=== PATIENT | male | born 1955 | race Caucasian/White ===

== ENCOUNTER 2017-05-11 09:55 | Emergency (ER) | payer MEDICARE ==
[2017-05-11 10:09] VITALS: BP 123/82; PULSE 65; RESP 18; TEMP 97
--- NOTE | 2017-05-11 10:16 | ED ---
Extremity Problem HPI - General Chief complaint: Extremity Problem,Nontraumatic Stated complaint: left knee pain Time Seen by Provider: 05/11/17 10:10 Source: patient, RN notes reviewed Mode of arrival: wheelchair Limitations: no limitations - History of Present Illness Initial comments: 62-year-old male presents emergency Department chief complaint left knee pain. Patient states started hurting over the last 1-2 days. Patient denies any trauma. He states it only bothers him when he weightbears he feels pain just inferior to his patella. Denies any redness, swelling fever or chills. Patient states that no prior knee problems like this. Denies any clicking or popping no falls no laxity sensation to it. - Related Data Previous Rx's Medication Instructions Recorded Acetaminophen-Codeine 300-30mg 1 tab PO Q4H PRN #20 tablet 05/11/17 [Tylenol #3] Allergies Allergy/AdvReac Type Severity Reaction Status Date / Time No Known Allergies Allergy Verified 05/11/17 10:09 Review of Systems ROS Statement: Those systems with pertinent positive or pertinent negative responses have been documented in the HPI. ROS Other: All systems not noted in ROS Statement are negative. Past Medical History Past Medical History: Hypertension History of Any Multi-Drug Resistant Organisms: None Reported Past Surgical History: Hernia Repair Past Psychological History: No Psychological Hx Reported Smoking Status: Never smoker Past Alcohol Use History: Rare Past Drug Use History: None Reported General Exam Limitations: no limitations General appearance: alert, in no apparent distress Respiratory exam: Present: normal lung sounds bilaterally. Absent: respiratory distress, wheezes, rales, rhonchi, stridor Cardiovascular Exam: Present: regular rate, normal rhythm, normal heart sounds. Absent: systolic murmur, diastolic murmur, rubs, gallop, clicks Extremities exam: Present: other (Left knee there is mild swelling in the prepatellar region, patient has full range of motion passive no discomfort there is mild discomfort with flexion of the knee active, pupils equal bilaterally there is no calf tenderness there is no erythema no warmth or joint. ) Course Vital Signs 05/11/17 10:06 Temperature 97.0 F L Pulse Rate 65 Respiratory 18 Rate Blood Pressure 123/82 O2 Sat by Pulse 97 Oximetry Medical Decision Making - Medical Decision Making 62-year-old male presented for left knee pain. Patient has [id number]-hshwykny patella moral joint space loss. Patient is having evidence of inflammatory changes secondary to osteoarthritis patient may have had unknown injury where he twisted it. Patient be discharged follow-up with orthopedics return parameters were discussed Disposition Clinical Impression: Left knee pain, Osteoarthritis of left knee Disposition: HOME SELF-CARE Condition: Stable Instructions: Knee Pain (ED) Additional Instructions: Please return to the Emergency Department if symptoms worsen or any other concerns. Prescriptions: Acetaminophen-Codeine 300-30mg [Tylenol #3] 1 tab PO Q4H PRN #20 tablet PRN Reason: pain Referrals: Agustin Morgan Jr, DO [Primary Care Provider] - 1-2 days Time of Disposition: 10:37
--- NOTE | 2017-05-11 10:33 | XR ---
EXAMINATION TYPE: XR knee complete LT DATE OF EXAM: 05/11/2017 CLINICAL HISTORY: Pain and swelling. TECHNIQUE: Three views of the left knee are obtained. COMPARISON: None. FINDINGS: There is no acute fracture/dislocation evident in left knee. There is mild to moderate bethany nt space loss with mild spurring medial tibiofemoral compartment. Mild joint space loss patellofemor al compartment is seen. The overlying soft tissue appears unremarkable. IMPRESSION: There is no acute fracture or dislocation in the left knee.
== END 2017-05-11 10:53 | disposition home or self-care (01) ==
LOC: EC 09:55
DX: M17.12 Unilateral primary osteoarthritis, left knee (principal)
CPT/HCPCS: 99283

== ENCOUNTER 2018-11-20 11:34 | Emergency (ER) | payer MEDICARE ==
[2018-11-20 11:47] VITALS: TEMP 98.4
--- NOTE | 2018-11-20 13:51 | CT ---
EXAMINATION TYPE: CT brain farida kumar con DATE OF EXAM: 11/20/2018 COMPARISON: NONE HISTORY: Fall from porch. Abrasion to Rt side of face next to orbit. Head and neck pain. CT DLP: 1719.1 mGycm. Automated Exposure Control for Dose Reduction was Utilized. TECHNIQUE: CT scan of the head and cervical spine are performed without contrast. FINDINGS: There is no acute intracranial hemorrhage, mass effect, or midline shift identified. Pun ctate left basal ganglia calcifications are incidentally noted. Old lacunar injuries are seen of the right external capsule and inferior right basal ganglia as well as the left external capsule. Patchy areas of hypoattenuation are noted within the subcutaneous cortical and periventricular white matter. Mild soft tissue swelling is seen in the right periorbital soft tissues. Globes and extraocular musc les are symmetric. Mild exophthalmos is noted. Lenses are in place. No suspicious extra-axial fluid c ollection is seen. Mucosal retention cyst is present within the right maxillary sinus. Scant mucosal thickening is seen within the ethmoid sinuses. Remaining paranasal sinuses and mastoid air cells are well aerated. Cervical spine is visualized in its entirety from C1 through upper thoracic levels and demonstrates s atisfactory vertebral body heights. There is very minimal grade 1 anterolisthesis of C4 and C5. Multi level facet arthropathy and uncovertebral hypertrophy are seen creating moderate to severe degenerati ve change with periapical degrees of neural foraminal narrowing. Multilevel disc osteophyte complexes are also noted. Prevertebral soft tissue appears within normal limits. 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 The C1-C2 articulation is unremarkable. IMPRESSION: 1. There is no acute fracture or dislocation evident in the cervical spine. 2. No acute intracranial hemorrhage, mass effect, or midline shift is seen. 3. Old lacunar injuries of the external capsules and right inferior lentiform nucleus. 4. Mild right supraorbital subcutaneous soft tissue swelling. 5. Moderate to severe multilevel degenerative disc disease of the cervical spine. 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
--- NOTE | 2018-11-20 14:07 | XR ---
EXAMINATION TYPE: XR knee complete RT DATE OF EXAM: 11/20/2018 CLINICAL HISTORY: Right knee pain after a fall TECHNIQUE: Three views of the right knee are obtained. COMPARISON: None. FINDINGS: There is no acute fracture/dislocation evident in right knee. The tri-compartment joint s paces demonstrate mild tricompartmental osteophytes with tibial spine osteophyte laterally. Small sup rapatellar joint effusion and mild prepatellar soft tissue swelling are noted. The overlying soft ti ssue appears unremarkable. IMPRESSION: 1. No acute fracture or dislocation in the right knee. Line 2. Small suprapatellar joint effusion and mild prepatellar soft tissue swelling. 3. Mild tricompartmental arthropathy.
[2018-11-20] MEDS ORDERED: DIPH,PERTUS(ACELL)TETVAC-LF 0.5 ML VIAL IM ONE (14:46)
--- NOTE | 2018-11-20 15:06 | ED ---
General Adult HPI - General Chief complaint: Extremity Injury, Lower Stated complaint: RT KNEE SWELLING Time Seen by Provider: 11/20/18 11:57 Source: patient, RN notes reviewed, old records reviewed Mode of arrival: wheelchair Limitations: no limitations - History of Present Illness Initial comments: 63-year-old male patient with past medical history of benign essential tremor presents to ED after sustaining a fall yesterday. Patient was walking downstairs, on the last stair he misstep and fell forward, patient fell onto his right knee, also had a minor abrasion to his right roman catholic. Patient presents today for right knee pain. Patient denies any loss of consciousness during fall. Patient denies any changes in vision or neck pain. Patient ambulatory today. Patient primary complaint is swelling in his right knee and mild amount of pain with ambulation. Patient is able to without difficulty stay. Systemic: Pt denies fatigue, fever/chills, rash. Pt denies weakness, night sweats, weight loss. Neuro: Pt denies headache, visual disturbances, syncope or pre-syncope. HEENT: Pt denies ocular discharge or irritation, otalgia, rhinorrhea, pharyngitis or notable lymphadenopathy. Cardiopulmonary: Pt denies chest pain, SOB, heart palpitations, dyspnea on exertion. Abdominal/GI: Pt denies abdominal pain, n/v/d. : Pt denies dysuria, burning w/ urination, frequency/urgency. Denies new onset urinary or bowel incontinence. MSK: Pt denies myalgia, loss of strength or function in extremities. Neuro: Pt denies new onset weakness, paresthesias. - Related Data Home Medications Medication Instructions Recorded Confirmed Propranolol HCl [Inderal] 60 mg PO BID 05/11/17 11/20/18 Previous Rx's Medication Instructions Recorded Ibuprofen [Motrin] 600 mg PO Q6HR PRN #40 day 11/20/18 Allergies Allergy/AdvReac Type Severity Reaction Status Date / Time No Known Allergies Allergy Verified 11/20/18 14:03 Review of Systems ROS Statement: Those systems with pertinent positive or pertinent negative responses have been documented in the HPI. ROS Other: All systems not noted in ROS Statement are negative. Past Medical History Past Medical History: Hypertension History of Any Multi-Drug Resistant Organisms: None Reported Past Surgical History: Hernia Repair Past Psychological History: No Psychological Hx Reported Smoking Status: Smoker, current status unknown Past Alcohol Use History: Rare Past Drug Use History: None Reported General Exam - General Exam Comments Initial Comments: Constitutional: NAD, AOX3, Pt has pleasant affect. HEENT: NC/AT, trachea midline, neck supple, no lymphadenopathy. Posterior pharynx non erythematous, without exudates. External ears appear normal, without discharge. Tympanic membrane pale luu bilaterally, no bulging, no erythema. Mucous membranes moist. Eyes PERRLA, EOM intact. There is no scleral icterus. No pallor noted. Cardiopulmonary: RRR, no murmurs, rubs or gallops, no JVD noted. Lungs CTAB in anterior and posterior alicia. No peripheral edema. Abdominal exam: Abdomen soft and non-distended. Abdomen non-tender to palpation in all 4 quadrants. Bowel sounds active in LLQ. No hepatosplenomegaly. No ecchymosis Neuro: CN II-XII intact. No nuchal rigidity. No cervical spine tenderness. Full active range of motion of neck. MSK: Right knee mildly edematous, small abrasion noted. No erythema. Full active range of motion of right knee. Ambulatory without difficulty. Distal pulses intact and equal. Small abrasion noted at right roman catholic. No open wound. No facial crepitus. No posterior calf tenderness bilaterally, homans sign negative bilaterally. Posterior tibialis and radial pulse +2 bilaterally. Sensation intact in upper and lower extremities. Full active ROM in upper and lower extremities, 5/5 stregnth. Limitations: no limitations Course Vital Signs 11/20/18 11/20/18 11:42 15:37 Temperature 98.4 F Pulse Rate 71 77 Respiratory 20 18 Rate Blood Pressure 130/77 132/86 O2 Sat by Pulse 97 96 Oximetry Medical Decision Making - Medical Decision Making 63-year-old male patient with past medical history of benign essential tremor presents to ED after sustaining a fall yesterday. Patient was walking downstairs, on the last stair he misstep and fell forward, patient fell onto his right knee, also had a minor abrasion to his right roman catholic. Patient presents today for right knee pain. Patient denies any loss of consciousness during fall. Patient denies any changes in vision or neck pain. Patient ambulatory today. Patient vital signs stable, afebrile. Physical exam displayed: Right knee mildly edematous, small abrasion noted. No erythema. Full active range of motion of right knee. Ambulatory without difficulty. Distal pulses intact and equal. Small abrasion noted at right roman catholic. No open wound. No facial crepitus. Pain films of knee displayed no acute fracture or dislocation, small suprapatellar joint effusion and mild prepatellar soft tissue swelling. Mild tri compartmental arthropathy. CT of brain and cervical spine displayed no acute fracture dislocation evident cervical spine. No acute intracranial hemorrhage, mass effect or midline seen. Old lacunar injuries of the external capsule and right inferior lentiform nucleus. Mild right supraorbital subcuteneous soft tissue swelling. Moderate to severe multilevel degenerative disc disease. These findings were explained to patient at length. Patient verbalized understanding. Patient to follow up with primary care provider in 1-2 days. Patient's tetanus updated today. Patient given referral to orthopedic surgeon. Patient to contact orthopedic surgeon this symptoms continue. Patient to use ibuprofen as needed for pain and inflammation. Patient to return to ED if new signs symptoms develop or if condition worsens in anyway. Case discussed in depth with Dr. Schmidt. Disposition Clinical Impression: Fall Disposition: HOME SELF-CARE Condition: Stable Instructions (If sedation given, give patient instructions): Knee Sprain (ED), Fall Prevention for Older Adults (ED) Additional Instructions: Patient to adhere to previously discussed treatment plan and will take medication(s) as directed. Patient to follow up with PCP in 1-2 days. Patient to return to ED if symptoms do not improve. Prescriptions: Ibuprofen [Motrin] 600 mg PO Q6HR PRN #40 day PRN Reason: Pain Is patient prescribed a controlled substance at d/c from ED?: No Referrals: Agustin Morgan Jr, DO [Primary Care Provider] - 1-2 days Dat Torres MD [STAFF PHYSICIAN] - 1-2 days Time of Disposition: 17:31
[2018-11-20 15:37] VITALS: BP 132/86; PULSE 77; RESP 18
== END 2018-11-20 15:37 | disposition home or self-care (01) ==
LOC: EC 11:34
DX: S80.211A Abrasion, right knee, initial encounter (principal); M25.461 Effusion, right knee; M12.861 Other specific arthropathies, not elsewhere classified, right knee; M50.30 Other cervical disc degeneration, unspecified cervical region; M79.89 Other specified soft tissue disorders; I10 Essential (primary) hypertension; F17.200 Nicotine dependence, unspecified, uncomplicated; Z79.899 Other long term (current) drug therapy; Z23 Encounter for immunization; W10.9XXA Fall (on) (from) unspecified stairs and steps, initial encounter; Y93.01 Activity, walking, marching and hiking; Y92.89 Other specified places as the place of occurrence of the external cause
CPT/HCPCS: 70450; 72125; 90471; 90715; 99284

== ENCOUNTER → 2019-06-08 | Outpatient (CLI) | payer MEDICARE ==
[2019-06-08 10:23] LABS: Basophils # (A) 0.1 k/uL (0-0.2); Basophils % (A) 1 %; Eosinophils # (A) 0.2 k/uL (0-0.7); Eosinophils % (A) 3 %; HCT 50.9 % (39.0-53.0); HGB 16.6 gm/dL (13.0-17.5); Lymphocytes # (A) 2.3 k/uL (1.0-4.8); Lymphocytes % (A) 36 %; MCH 30.6 pg (25.0-35.0); MCHC 32.6 g/dL (31.0-37.0); MCV 93.8 fL (80.0-100.0); Mean Platelet Volume 7.2; Monocytes # (A) 0.4 k/uL (0-1.0); Monocytes % (A) 7 %; Neutrophils # (A) 3.3 k/uL (1.3-7.7); Neutrophils % (A) 51 %; Platelet Count 258 k/uL (150-450); RBC 5.43 m/uL (4.30-5.90); RDW 14.4 % (11.5-15.5); WBC 6.5 k/uL (3.8-10.6)
[2019-06-08 11:45] LABS: Erythrocyte Sedimentation Rate 2 mm/hr (0-15)
[2019-06-08 16:06] LABS: Vitamin D 25 Hydroxy 13.7 ng/mL (30.0-100.0)
[2019-06-08 16:08] LABS: Calcium 9.9 mg/dL (8.7-10.3); Uric Acid 4.9 mg/dL (3.7-8.7)
== END | disposition home or self-care (01) ==
LOC: LABWHC1 09:49
PROVIDERS: ATTEND Dermatology
DX: L74.519 Primary focal hyperhidrosis, unspecified (principal)
CPT/HCPCS: 36415; 82306; 82310; 82533; 82652; 83970; 84146; 84439; 84443; 84481; 84550; 85025; 85652; 86038

== ENCOUNTER → 2022-02-12 | Outpatient (CLI) | payer OTHER ==
[2022-02-12 09:40] LABS: Partial Thromboplastin Time 26.4 sec (22.0-30.0); Prothrombin Time 10.7 sec (9.0-12.0)
[2022-02-12 14:29] LABS: Appearance,Urine Clear (Clear); Bilirubin,Urine Negative (Negative); Blood,Urine Negative (Negative); Color,Urine Yellow (Yellow); Ketones,Urine Negative (Negative); Nitrite,Urine Negative (Negative); Specific Gravity,Urine 1.015 (1.001-1.030); Urobilinogen,Urine 0.2 (0.2,1.0)
[2022-02-12 14:39] LABS: HCT 50.1 % (39.6-50.0); HGB 16.2 g/dL (13.0-17.0); MCH 30.8 pg (27.0-32.0); MCHC 32.3 g/dL (32.0-37.0); MCV 95.2 fL (80.0-97.0); Mean Platelet Volume 9.9 fL (9.5-12.2); NRBC Per 100 WBC 0 /100 WBCS (0.0-0.0); Platelet Count 251 X 10*3/uL (140-440); RBC 5.26 X 10*6/uL (4.40-5.60); RDW 12.7 % (11.5-14.5); WBC 7.17 X 10*3/uL (4.50-10.00)
[2022-02-12 15:14] LABS: African American GFR (CKD) 102.1 (60.0-200.0); Albumin 4.4 g/dL (3.8-4.9); Albumin/Globulin Ratio 1.83 (1.60-3.17); Anion Gap 8.4 mmol/L (10.00-18.00); BUN/Creat Ratio 16.22 Ratio (12.00-20.00); Blood Urea Nitrogen 14.6 mg/dL (9.0-27.0); Calcium 10.3 mg/dL (8.7-10.3); Carbon Dioxide 25.6 mmol/L (20.0-27.5); Globulin 2.4 g/dL (1.6-3.3); Non-African American GFR(CKD) 88.1 (60.0-200.0); Potassium 4.6 mmol/L (3.5-5.5); Total Bilirubin 0.7 mg/dL (0.30-1.20); Total Protein 6.8 g/dL (6.2-8.2)
== END | disposition home or self-care (01) ==
LOC: LABPAT 08:14
PROVIDERS: ATTEND Orthopaedic Surgery Sports Medicine
DX: Z01.818 Encounter for other preprocedural examination (principal); Z01.812 Encounter for preprocedural laboratory examination
CPT/HCPCS: 36415; 80053; 81003; 85027; 85610; 85730; 87070

== ENCOUNTER 2022-03-23 03:02 | Emergency (ER) | payer MEDICARE, OTHER ==
[2022-03-23 03:13] VITALS: TEMP 98.4
[2022-03-23] MEDS ORDERED: IPRATROPIUM-ALBUTEROL 3 ML NEB INHALATION STA (03:31)
[2022-03-23] MEDS ORDERED: AMOXIC-POT CLAV 875-125MG 1 EACH TAB PO STA (03:31)
[2022-03-23] MEDS ORDERED: ACETAMINOPHEN TAB 500 MG TAB PO STA (03:31)
[2022-03-23] MEDS ORDERED: LORATADINE-PSEUDOEPH 5-120 MG 1 EACH TAB.ER.12H PO STA (03:31)
[2022-03-23] MEDS ORDERED: IBUPROFEN 800 MG TAB PO STA (03:31)
--- NOTE | 2022-03-23 03:33 | ED ---
URI HPI - General Chief Complaint: Upper Respiratory Infection Stated Complaint: Cough Time Seen by Provider: 03/23/22 03:17 Source: patient, RN notes reviewed, old records reviewed Mode of arrival: wheelchair Limitations: no limitations - History of Present Illness Initial Comments: This is a 66-year-old male the ER today. Patient presents today for evaluation regards to cough and runny nose cough congestion sore throat. Patient is has symptoms for a few days now. No travel show sick contacts no other complaints. No nausea no vomiting. Medical history of high blood pressure no other significant issues. Noted family or similar symptoms. No known travel history or sick contacts. MD Complaint: cough, sore throat, nasal congestion, sinus pain -: days(s) Severity: moderate Severity scale (1-10): 4 Consistency: constant Improves With: nothing Worsens With: nothing Context: sick contacts Associated Symptoms: myalgias, nasal congestion, sore throat, cough Treatments Prior to Arrival: none - Related Data Home Medications Medication Instructions Recorded Confirmed Atorvastatin [Lipitor] 40 mg PO HS 02/25/22 02/25/22 Metoprolol Tartrate [Lopressor] 50 mg PO BID 02/25/22 02/25/22 Allergies Allergy/AdvReac Type Severity Reaction Status Date / Time No Known Allergies Allergy Verified 03/23/22 03:13 Review of Systems ROS Statement: Those systems with pertinent positive or pertinent negative responses have been documented in the HPI. ROS Other: All systems not noted in ROS Statement are negative. Past Medical History Past Medical History: Hypertension History of Any Multi-Drug Resistant Organisms: None Reported Past Surgical History: Hernia Repair Additional Past Surgical History / Comment(s): going for knee surgery 03/2022 Past Psychological History: No Psychological Hx Reported Smoking Status: Never smoker Past Alcohol Use History: Rare Past Drug Use History: None Reported General Exam General appearance: alert, in no apparent distress Head exam: Present: atraumatic, normocephalic, normal inspection Eye exam: Present: normal appearance, PERRL, EOMI. Absent: scleral icterus, conjunctival injection, periorbital swelling ENT exam: Present: normal exam, mucous membranes moist Neck exam: Present: normal inspection. Absent: tenderness, meningismus, lymphadenopathy Respiratory exam: Present: normal lung sounds bilaterally. Absent: respiratory distress, wheezes, rales, rhonchi, stridor Cardiovascular Exam: Present: regular rate, normal rhythm, normal heart sounds. Absent: systolic murmur, diastolic murmur, rubs, gallop, clicks GI/Abdominal exam: Present: soft, normal bowel sounds. Absent: distended, tenderness, guarding, rebound, rigid Extremities exam: Present: normal inspection, full ROM, normal capillary refill. Absent: tenderness, pedal edema, joint swelling, calf tenderness Back exam: Present: normal inspection Neurological exam: Present: alert, oriented X3, CN II-XII intact Psychiatric exam: Present: normal affect, normal mood Skin exam: Present: warm, dry, intact, normal color. Absent: rash Course Vital Signs 03/23/22 03/23/22 03/23/22 03:09 03:52 04:04 Temperature 98.4 F Pulse Rate 99 96 Respiratory 19 22 Rate Blood Pressure 151/90 O2 Sat by Pulse 93 L Oximetry 03/23/22 03/23/22 04:13 04:17 Temperature Pulse Rate 101 H 96 Respiratory 18 Rate Blood Pressure 125/76 O2 Sat by Pulse 92 L Oximetry - Reevaluation(s) Reevaluation #1: 03/23/22 03:55 Medical records reviewed Reevaluation #2: 03/23/22 04:34 Patient symptoms are improved here in the ER Reevaluation #3: 03/23/22 04:34 Patient is informed of results and questions have been answered Medical Decision Making - Medical Decision Making 66 male to the emergency department for evaluation regarding sinus pain significant cough and for for infection sinusitis severe. Patient replacement antibiotics, patient's in no acute distress and can be discharged home - Lab Data Lab Results 03/23/22 Range/Units 03:45 Influenza Type A RNA Not Detected (Not Detectd) Influenza Type B (PCR) Not Detected (Not Detectd) - Radiology Data Radiology results: report reviewed (Chest x-rays negative for acute disease), image reviewed Disposition Clinical Impression: Acute upper respiratory infection, Bronchitis, Sinusitis, Pharyngitis Disposition: HOME SELF-CARE Condition: Good Instructions (If sedation given, give patient instructions): Upper Respiratory Infection (ED) Is patient prescribed a controlled substance at d/c from ED?: No Referrals: Tylor Polanco DO [Primary Care Provider] - 1-2 days
--- NOTE | 2022-03-23 04:00 | XR ---
EXAMINATION TYPE: XR chest 1V DATE OF EXAM: 03/23/2022 COMPARISON: NONE HISTORY: Cough TECHNIQUE: Single view FINDINGS: There is no heart failure nor confluent pneumonic infiltrate. Costophrenic angles are clear . Thoracic aorta is atheromatous. IMPRESSION: No active cardiopulmonary disease. Normal heart.
[2022-03-23 04:25] VITALS: BP 125/76; RESP 18
[2022-03-23 04:27] VITALS: PULSE 96
== END 2022-03-23 04:45 | disposition home or self-care (01) ==
LOC: EC 03:02
DX: J32.9 Chronic sinusitis, unspecified (principal); J40 Bronchitis, not specified as acute or chronic; J02.9 Acute pharyngitis, unspecified; I10 Essential (primary) hypertension; Z79.899 Other long term (current) drug therapy
CPT/HCPCS: 71045; 87502; 94640; 99283

== ENCOUNTER → 2022-06-23 | Outpatient (CLI) | payer MEDICARE ==
[2022-06-23 19:01] LABS: Partial Thromboplastin Time 26.7 sec (22.0-30.0); Prothrombin Time 10.9 sec (9.0-12.0)
[2022-06-23 22:30] LABS: HCT 50.8 % (39.6-50.0); HGB 16.6 g/dL (13.0-17.0); MCHC 32.7 g/dL (32.0-37.0); Mean Platelet Volume 10.4 fL (9.5-12.2); NRBC Per 100 WBC 0 /100 WBCS (0.0-0.0); Platelet Count 261 X 10*3/uL (140-440); RBC 5.35 X 10*6/uL (4.40-5.60); RDW 13.2 % (11.5-14.5); WBC 8.11 X 10*3/uL (4.50-10.00)
[2022-06-23 22:57] LABS: African American GFR (CKD) 99.6 (60.0-200.0); Albumin 4.3 g/dL (3.8-4.9); Albumin/Globulin Ratio 1.58 (1.60-3.17); Anion Gap 11.8 mmol/L (10.00-18.00); BUN/Creat Ratio 14.9 Ratio (12.00-20.00); Blood Urea Nitrogen 13.6 mg/dL (9.0-27.0); Calcium 10.2 mg/dL (8.7-10.3); Carbon Dioxide 23.5 mmol/L (20.0-27.5); Globulin 2.7 g/dL (1.6-3.3); Potassium 4.5 mmol/L (3.5-5.5); Total Bilirubin 0.6 mg/dL (0.30-1.20)
[2022-06-23 23:38] LABS: Appearance,Urine Clear (Clear); Bilirubin,Urine Negative (Negative); Blood,Urine Negative (Negative); Color,Urine Yellow (Yellow); Ketones,Urine Negative (Negative); Nitrite,Urine Negative (Negative); Specific Gravity,Urine 1.019 (1.001-1.030); Urobilinogen,Urine 0.2 (0.2,1.0)
[2022-06-24 00:22] LABS: Bacteria,Urine None Seen /HPF (None Seen); Calcium Oxalate Crystals,Urine Present /LPF (None Seen)
== END | disposition home or self-care (01) ==
LOC: LABPAT 15:19
PROVIDERS: ATTEND Orthopaedic Surgery Sports Medicine
DX: Z01.812 Encounter for preprocedural laboratory examination (principal); Z01.818 Encounter for other preprocedural examination; M17.12 Unilateral primary osteoarthritis, left knee
CPT/HCPCS: 36415; 80053; 81001; 85027; 85610; 85730; 87070

== ENCOUNTER 2022-07-03 05:33 | Day surgery (SDC) | payer MEDICARE ==
[~2022-07-03 05:33] MED LIST: ACETAMINOPHEN TAB 500 MG TAB PO PRN; GABAPENTIN 300 MG CAP PO PRN; MELOXICAM 7.5 MG TAB PO PRN; ONDANSETRON 4 MG/2 ML VIAL IVP PRN; TRANEXAMIC ACID IN NACL,ISO-OS 1,000 MG in SALINE 1 100ML.BAG IVPB PRN; VANCOMYCIN 1,750 MG in SODIUM CHLORIDE 0.9% 500 ML 500 ML IVPB PRN
[2022-07-03] MEDS ORDERED: DEXAMETHASONE SOD PHOSPHATE 4 MG/ML 1 ML VIAL IV ONE (05:45)
[2022-07-03] MEDS ORDERED: HYDROmorphone 0.5 MG/0.5 ML SYRINGE IVP PRN ×4 (05:45→09:25)
[2022-07-03] MEDS ORDERED: ONDANSETRON 4 MG/2 ML VIAL IVP ONE (05:45)
[2022-07-03] MEDS: LACTATED RINGERS 1,000 ML IV SCH ×3 (06:24→22:27)
[2022-07-03] MEDS ORDERED: MIDAZOLAM 2 MG/2 ML VIAL IVP ONE (06:44)
[2022-07-03] MEDS ORDERED: fentaNYL (PF) 50 MCG/ML 2 ML AMP IVP ONE (06:44)
[2022-07-03] MEDS ORDERED: SODIUM CHLORIDE 0.9% (PF) 10 ML VIAL ONE (07:01)
[2022-07-03] MEDS ORDERED: ROPIVACAINE 5 MG/ML 30 ML VIAL ONE (07:01)
[2022-07-03] MEDS ORDERED: PROPOFOL 10 MG/ML 20 ML VIAL IV ONE (07:01)
[2022-07-03] MEDS ORDERED: SUCCINYLCHOLINE CHLORIDE 200 MG/10 ML VIAL IV ONE (07:01)
[2022-07-03] MEDS ORDERED: TRANEXAMIC ACID IN NACL,ISO-OS 1,000 MG/100 ML BAG ONE (07:01)
[2022-07-03] MEDS ORDERED: fentaNYL (PF) 50 MCG/ML 2 ML AMP ONE (07:01)
[2022-07-03] MEDS ORDERED: HYDROmorphone (PF) 1 MG/ML ONE (07:01)
[2022-07-03] MEDS ORDERED: PHENYLEPHRINE-0.9% NACL SYG 1,000 MCG/10 ML SYRINGE ONE (07:01)
[2022-07-03] MEDS ORDERED: LIDOCAINE 2% INJ 20 MG/ML (2 ML VIAL) ONE (07:01)
[2022-07-03] MEDS ORDERED: ceFAZolin 3,000 MG in SODIUM CHLORIDE 0.9% IRRIGATIO 3,000 ML IRRIGATION ONE (07:46)
[2022-07-03] MEDS ORDERED: LACTATED RINGERS 1,000 ML IV ONE (09:07)
[2022-07-03] MEDS ORDERED: TEMAZEPAM 15 MG CAP PO PRN (09:25)
[2022-07-03] MEDS ORDERED: diazePAM 5 MG TAB PO PRN (09:25)
[2022-07-03] MEDS ORDERED: MAGNESIUM HYDROXIDE 2,400 MG/10 ML CUP PO PRN (09:25)
[2022-07-03] MEDS ORDERED: traMADol 50 MG TAB PO PRN (09:25)
[2022-07-03] MEDS ORDERED: bisacodyL 10 MG SUPP RECTAL PRN (09:25)
[2022-07-03] MEDS ORDERED: NALOXONE 0.4 MG/ML 1 ML VIAL IV PRN (09:25)
[2022-07-03] MEDS ORDERED: NA PHOS,M-B/NA PHOS,DI-BA 133 ML ENEMA RECTAL PRN (09:25)
[2022-07-03] MEDS ORDERED: ONDANSETRON 4 MG/2 ML VIAL IVP PRN (09:25)
[2022-07-03] MEDS ORDERED: HYDROcodone/APAP 7.5-325MG 1 EACH TAB PO PRN ×2 (09:29)
[2022-07-03] MEDS ORDERED: ROPIVACAINE 0.2%-NS ON-Q PUMP 2 MG/ML EACH MISCELLANE ONE (09:41)
--- NOTE | 2022-07-03 09:54 | P.ANPRN ---
Procedure Note - Anesthesia - Nerve Block Performed Left Adductor Canal Infusion Time Out Performed: Yes (0643) Date of Procedure: 07/03/22 Procedure Start Time: 06:44 Procedure Stop Time: 06:49 Location of Patient: PreOp Indication: Acute Post-Operative Pain, Requested by Surgeon Specifically requested for management of pain by DrTiarra: Brigido Dinero Sedation Type: Sedate with meaningful contact maintained Preparation: Sterile Prep, Sterile Dressing Position: Supine Catheter Depth at Skin (cm): 8 Catheter: Indwelling Needle Types: Pajunk Needle Gauge: 18 Ultrasound used to visualize needle placement: Yes Ultrasound used to observe medication spread: Yes Injectate: 0.5% Ropivacaine (see comment for volume) (15cc +5cc nacl pf) Blood Aspirated: No Pain Paresthesia on Injection Noted: No Resistance on Injection: Normal Image Stored and Saved: Yes Events: Uneventful and Well Tolerated
--- NOTE | 2022-07-03 09:55 | P.ANPRN ---
Procedure Note - Anesthesia - Nerve Block Performed Left iPack Single Time Out Performed: Yes (0643) Date of Procedure: 07/03/22 Procedure Start Time: 06:50 Procedure Stop Time: 06:52 Location of Patient: PreOp Indication: Acute Post-Operative Pain, Requested by Surgeon Specifically requested for management of pain by DrTiarra: Brigido Dinero Sedation Type: Sedate with meaningful contact maintained Preparation: Sterile Prep Position: Supine Catheter: None Needle Types: Pajunk Needle Gauge: 21 Ultrasound used to visualize needle placement: Yes Ultrasound used to observe medication spread: Yes Injectate: 0.5% Ropivacaine (see comment for volume) (15cc + 5cc nacl pf) Blood Aspirated: No Pain Paresthesia on Injection Noted: No Resistance on Injection: Normal Image Stored and Saved: Yes Events: Uneventful and Well Tolerated
--- NOTE | 2022-07-03 10:10 | OP ---
OPERATIVE REPORT PREOPERATIVE DIAGNOSIS: Left knee osteoarthrosis. POSTOPERATIVE DIAGNOSIS: Left knee osteoarthrosis. PROCEDURE PERFORMED: Left total knee arthroplasty. ANESTHESIA: General endotracheal. ESTIMATED BLOOD LOSS: 100 mL. TOURNIQUET TIME: 57 minutes at 250 mmHg. COMPLICATIONS: None apparent. DRAINS: None. DISPOSITION: Postanesthesia care unit. INDICATIONS FOR PROCEDURE: Ren is a very pleasant 67-year-old male with longstanding history of left knee pain. History and physical examination are consistent with advanced left knee osteoarthrosis. He has been through significant nonoperative management up to this point. Further treatment options were discussed. He has decided to go forward with the left total knee arthroplasty. Risks of procedure were discussed with him in detail. These risks include, but are not limited to risk of infection, nerve damage, bleeding, pain, and a small risk of deep vein thrombosis which could lead to fatal pulmonary embolism. There is also risk of loosening of the implant which could require revision operation. The patient understands these risks. All of his questions were answered to his satisfaction. An appropriate informed consent was obtained. DESCRIPTION OF PROCEDURE: The patient was identified in the preoperative holding area. Surgical site was marked by both the patient and myself. He was given 2 g of Ancef IV for prophylactic purposes. He was then transferred to the operative suite. He was placed supine on the operating room table. General anesthetic was then administered and dosed per the Anesthesia Department without apparent complication. An examination under anesthesia was then performed. The patient was 5 to 7 degrees shy of full extension. He had 100 degrees of flexion. Medial collateral ligament, lateral collateral ligament, and posterior cruciate ligaments were stable. Tourniquet was then placed high on the left upper thigh and well-padded in preparation for surgery. The patient's left lower extremity was then prepped and draped in usual sterile fashion. Standard surgical pause was undertaken to ensure that we were operating the correct site and that appropriate preoperative antibiotics had been given. All staff in the room were in agreement, and we proceeded. The outlines of the patella were marked with a surgical pen. A planned 12 cm vertical incision centered over the patella was marked with a surgical pen. The leg was then exsanguinated with an Esmarch dressing. The knee was then flexed, and the tourniquet was inflated to 250 mmHg. The total tourniquet time for the procedure was 57 minutes. Incision was then made with a 10-blade scalpel. Dissection was carried down sharply overlying the fascia. Great care was taken to minimize the skin flaps. The knee was then exposed using a standard medial parapatellar approach. A small cuff of quadriceps tendon was then left for suturing. He was in a bit of varus preoperatively. A standard medial release was then made. Superficial medial collateral ligament was dissected off the bone around to the posterior aspect of the proximal tibia. The medial meniscus was then excised as well. The lateral meniscus was also released anteriorly. The leg was then externally rotated. The patella was everted. The knee was flexed. The retractors were then placed to protect the collateral ligaments. I then proceeded to remove the infrapatellar fat pad. This was excised sharply tangentially with fibers of the patellar tendon. I then proceeded to remove the peripheral osteophytes. This was done with a rongeur. I then proceeded with the distal femoral resection. He did have a small flexion contracture. A planned 11 mm resection was then done. The femoral canal was then entered in the midline of the femur approximately 10 mm anterior to the origin of the posterior cruciate ligament. The vladimir was then advanced down to the center of the femur and placed intramedullary. Based on the preoperative radiographs, the angle between the anatomic and mechanical axis of the femur was approximately 4 to 5 degrees. The valgus angle of the distal femoral cutting guide was then set at 4 degrees for the left knee. The distal femoral cutting guide was then advanced over the intramedullary vladimir. This was seated firmly against the femur. I then as mentioned planned to take 11 mm off the distal femur. The cutting block was then secured onto the femur with pins. The jig was then removed. The distal femoral cuts were made through the slot of the block. The pins were then removed. The distal femoral cutting block was removed. The accuracy of the distal femoral cuts was checked with 2 flat bars. I then proceeded with femoral sizing. Posterior referencing sizing guide was held firmly against the resected distal surface of the femur. The posterior condyles were resting on the posterior plane of the guide. The sizing stylus was then placed onto the anterior femur. The size was measured as a size 8. I then assessed for femoral rotation. The plan was for 3 degrees of external rotation. Three degrees of external rotation was placed onto the jig. These holes were then marked. I then confirmed the rotation by 3 separate methods. This was done using epicondylar axis as well as Gloster's line and posterior referencing. It was deemed that the external rotation was proper. I then went forward and placed the femoral cutting block. This was placed over the previously-placed pin holes. The Aric wing was then placed onto the anterior slots to ensure that we would not notch the anterior femur with the anterior femoral cut. I then proceeded with the anterior femoral cut. This was flush with the anterior cortex of the femur. The posterior cuts were then made followed by the anterior chamfer cut and then the posterior chamfer cut. The cutting block was then removed. Throughout the resection, the collateral ligaments were protected with retractors. I then placed a trial size 8 femur. It fit very nice medial and lateral and fit flush with the distal end of the femur. The drill holes were then made. I then proceeded with the tibial cut. I planned for a cruciate-retaining knee. The guide was placed and set for varus and valgus and for slope. The height was set for approximately 2 mm resection from the medial tibial plateau, which was the lower side. I was happy with the alignment and the amount of resection. The cutting block was then pinned to the proximal tibia. The alignment vladimir was removed, and the proximal tibia was resected with a reciprocating saw. Again, this was done with retractors protecting the collateral ligaments as well as the posterior cruciate ligament. I then proceeded to evaluate the flexion and extension gaps. A 10 mm block was then placed. The flexion and extension gaps were equal. I then proceeded with resection of the posterior osteophytes. He had very minimal posterior osteophytes. This was done using a curved osteotome. This resected the posterior osteophytes, and posterior capsular stripping was done off the posterior aspect of the femur at this time. The osteophytes were then removed. I then proceeded with resection of the patella. The thickness of the patella was measured using the caliper. The thickness was 22 mm. The thickness of the anticipated patellar dome was taken into account. Resection was then performed and confirmed to be equal in 4 quadrants using a caliper. Approximately 14 mm of bone remained after resection. A 29 x 8 standard patellar trial was then placed. The holes were drilled, and the trial was then placed. I then proceeded with sizing the tibial plate. A size D tibial plate fit very nicely. I placed the trial femur, the tibial tray, and the patellar button. A 10 mm trial tibial insert was also placed. The components fit very nicely. He had full extension and flexion. The extension and flexion gaps were equal and stable to both varus and valgus stress. The patella tracked appropriately. The tibial tray rotation was then marked with a Bovie. This was externally rotated properly. I then proceeded with tibial preparation. I first drilled the femoral holes and removed the femoral component. The tibial tray was then set for proper external rotation as well as medial and lateral placement onto the tibia. It was then pinned into place. I then proceeded with punching the keel. I then decided to proceed with cementing of all of our components. The knee was thoroughly irrigated with sterile saline solution via pulsed lavage. The lateral genicular artery was identified and cauterized. All blood was removed from the bone of the tibia, femur, and patella with pulsed lavage. I then proceeded with cementing. Two packs of antibiotic bone cement was prepared on the back table by surgical assist. I then proceeded with cementing of the tibia first. The cement was impacted into the keel as well as deeply seated into the bone. A second coat of cement was then placed. The tibia was then impacted into place. Excess cement was removed with Killingworth's and Joker's. I then proceeded with cementing of the femoral component. The femoral component was also cemented using standard technique. Excess cement was removed. A 10 mm trial insert was then placed into the knee. It was brought into full extension with a constant axial load placed until the cement had hardened. The patellar component was then cemented. This was held firmly with a compressive device until the cement had dried. When the cement had dried, the knee was taken out of extension. All excess cement was removed from around the prosthesis. I then trialed the knee with a 10 mm insert. The flexion and extension gaps were appropriate. The knee was stable. It came into full extension. I decided to go forward with a 10 mm Medial Congruent cross-linked cruciate- retaining tibial insert. Polyethylene was then placed onto the tibial tray and locked into place. The knee was then reduced. The knee was again further irrigated with sterile saline with antibiotic added. The tourniquet was then deflated. Total tourniquet time for the procedure was 57 minutes at 250 mmHg. Final components were Carlene Persona size 8 cruciate-retaining femoral component, a size D tibial tray, a 10 mm Medial Congruent cruciate-retaining polyethylene insert, and a 29 x 8 mm patella. I then proceeded with closure. Again, the knee was thoroughly irrigated. The quadriceps tendon and the medial retinaculum were reapproximated using #2 Ethibond suture. The extensor mechanism was then closed with a running #2 Quill suture. Subcutaneous tissue was closed with 2-0 Vicryl interrupted suture. The skin was closed with a running 3-0 Quill suture. Dermabond was applied to the incision. Sterile compressive dressing was then applied. All sponge and needle counts were deemed correct prior to closure. The patient tolerated the procedure without apparent complication. He was transferred to recovery room in stable condition. MMODL / IJN: [id number] /
--- NOTE | 2022-07-03 15:14 | XR ---
EXAMINATION TYPE: XR knee limited LT DATE OF EXAM: 07/03/2022 COMPARISON: NONE HISTORY: 67-year-old male evaluation for postoperative abnormality in alignment TECHNIQUE: 2 views FINDINGS: Images show placement of left total knee arthroplasty. Distal femoral and proximal tibial components of the prosthesis are well seated without periprosthetic fracture. Alignment grossly anatomic. Anteri or soft tissue swelling with scattered soft tissue air and small foci of intra-articular air related to recent operation. IMPRESSION: Uncomplicated postoperative appearance left total knee arthroplasty.
[2022-07-03] MEDS: ceFAZolin 3 GM in SODIUM CHLORIDE 0.9% 100 ML IVPB SCH (16:10)
[2022-07-03] MEDS ORDERED: SENNOSIDES-DOCUSATE SODIUM 1 EACH TAB PO SCH (21:00)
[2022-07-03] MEDS: ASPIRIN 81 MG PO SCH (21:17)
[2022-07-04] MEDS: ceFAZolin 3 GM in SODIUM CHLORIDE 0.9% 100 ML IVPB SCH (01:20)
[2022-07-04 03:17] VITALS: PULSE 88; RESP 19
[2022-07-04] MEDS: LACTATED RINGERS 1,000 ML IV SCH (05:10)
--- NOTE | 2022-07-04 07:41 | P.PN ---
Progress Note - Text Progress Note Date: 07/04/22 (6018) Anesthesiology Postop day 1 status post total knee arthroplasty with adductor canal catheter. Patient doing well. VAS 3-4 out of 10. Gross strength intact in lower extremity. Afebrile. Denies alterations in sensorium. Catheter site intact. Heart regular rate Lungs nonlabored Abdomen nondistended Assessment: Postop day 1 status post total knee arthroplasty with adductor canal catheter Plan: All questions answered. Maintain catheter 2 more days with patient removal at home. Instructions were given at discharge.
[2022-07-04] MEDS: ASPIRIN 81 MG PO SCH (07:56)
[2022-07-04 09:04] VITALS: BP 138/64; TEMP 97.7
[2022-07-04 10:49] LABS: HCT 43.1 % (39.6-50.0); HGB 13.7 g/dL (13.0-17.0); MCH 30.5 pg (27.0-32.0); MCHC 31.8 g/dL (32.0-37.0); Mean Platelet Volume 9.8 fL (9.5-12.2); NRBC Per 100 WBC 0 /100 WBCS (0.0-0.0); Platelet Count 211 X 10*3/uL (140-440); RBC 4.49 X 10*6/uL (4.40-5.60); RDW 13.2 % (11.5-14.5); WBC 9.35 X 10*3/uL (4.50-10.00)
--- NOTE | 2022-07-04 10:56 | P.DS ---
Providers Expected date of discharge: 07/04/22 Attending physician: Brigido Dinero Consults: 07/03/22 09:25 Consult Physician Routine Consulting Provider: Tylor Polanco Consult Reason/Comments: post op medical management Do you want consulting provider notified?: Yes Primary care physician: Tylor Polanco - Discharge Diagnosis(es) (1) Status post total left knee replacement Patient was admitted to the OR on 07/02/22 to undergo a left total knee arthroplasty. He had failed conservative measures as an outpatient and desired to proceed with elective surgery after given informed consent. He underwent the above procedure which he tolerated well without complication. Postoperative hospital course has remained without complication. On day of discharge he is afebrile, vital signs stable, labs within acceptable ranges, tolerating by mouth meds and diet, voiding without difficulty, positive flatus, denies abdominal pain or calf pain, pain is controlled on oral pain medication and has no new complaints. Wound is benign, neurovascular status is intact, calf is soft and nontender, abdomen soft and nontender. Review of systems is negative for numbness, tingling, fever, chills, chest pain, shortness of breath, nausea, vomiting, dizziness, headaches, slurred speech or other. Current Visit: Yes Status: Acute Priority: Medium Procedures: Left TKA Patient Condition at Discharge: Good Plan - Discharge Summary Discharge Rx Participant: No New Discharge Prescriptions: New Aspirin [Adult Low Dose Aspirin EC] 81 mg PO BID #60 tab Docusate [Colace] 100 mg PO BID #60 capsule HYDROcodone/APAP 7.5-325MG [[place] 7.5-325] 1 - 2 each PO Q6HR PRN #42 tab PRN Reason: Pain No Action Metoprolol Tartrate [Lopressor] 50 mg PO BID Atorvastatin [Lipitor] 40 mg PO HS Oxybutynin Chloride [Ditropan XL] 10 mg PO HS Discharge Medication List Atorvastatin [Lipitor] 40 mg PO HS 02/25/22 [History] Metoprolol Tartrate [Lopressor] 50 mg PO BID 02/25/22 [History] Oxybutynin Chloride [Ditropan XL] 10 mg PO HS 06/30/22 [History] Aspirin [Adult Low Dose Aspirin EC] 81 mg PO BID #60 tab 07/04/22 [Rx] Docusate [Colace] 100 mg PO BID #60 capsule 07/04/22 [Rx] HYDROcodone/APAP 7.5-325MG [[place] 7.5-325] 1 - 2 each PO Q6HR PRN #42 tab 07/04/22 [Rx] Follow up Appointment(s)/Referral(s): [facility], [NON-STAFF] - ([facility] will call you to arrange a visit. ) Brigido Dinero MD [STAFF PHYSICIAN] - 07/15/22 1:15 pm Activity/Diet/Wound Care/Special Instructions: Weight bear as tolerated May shower after 3 days if no bleeding Keep wound clean and dry Take meds as directed F/U with Dr. Dinero in office Discharge Disposition: HOME WITH HOME HEALTH SERVICES
[2022-07-04] MEDS ORDERED: MULTIVITAMINS, THERA 1 EACH TAB PO SCH (12:00)
[2022-07-04 12:47] LABS: Basophils # (M) 0 X 10*3/uL (0.00-0.10); Eosinophils # (M) 0 X 10*3/uL (0.04-0.35); Lymphocytes # (M) 1.59 X 10*3/uL (0.90-5.00); Neutrophils # (M) 6.26 X 10*3/uL (2.00-8.90); Neutrophils % (M) 67 %
[2022-07-04] MEDS ORDERED: METOPROLOL TARTRATE 50 MG TAB PO ONE (13:00)
--- NOTE | 2022-07-04 13:00 | P.CONS ---
History of Present Illness - Reason for Consult Consult date: 07/04/22 Medical management hypertension Requesting physician: Brigido Dinero - Chief Complaint Left knee osteoarthritis, failed conservative treat. status post left total - History of Present Illness This is a pleasant 67-year-old gentleman with osteoarthritis of left knee, failed conservative treatment, status post total left knee arthroplasty, the patient with past medical history of hypertension, hyperlipidemia, obesity and multiple other medical issues. Tolerated procedure well. Pain controlled. Denies nausea vomiting or diarrhea. Passing flatus. Up with PT and success fully completed stairs, ambulated in the hallway, tolerating exertion well. Denies lightheadedness, dizziness or focal deficits. Denies chest pain, palpitations or shortness of breath. Maintaining O2 sats in the 90s on room air. Review of Systems ROS Statement:Those systems with pertinent positive or pertinent negative responses have been documented in the HPI. ROS Other: All systems not noted in ROS Statement are negative. Past Medical History Past Medical History: Hyperlipidemia, Hypertension, Osteoarthritis (OA), Sleep Apnea/CPAP/BIPAP Additional Past Medical History / Comment(s): had surg. for sleep apnea, still has problems, not using CPAP, urinary incontinence History of Any Multi-Drug Resistant Organisms: None Reported Past Surgical History: Hernia Repair Additional Past Surgical History / Comment(s): surg. for sleep apnea Past Anesthesia/Blood Transfusion Reactions: No Reported Reaction Past Psychological History: No Psychological Hx Reported Smoking Status: Never smoker Past Alcohol Use History: Rare Past Drug Use History: None Reported Medications and Allergies Home Medications Medication Instructions Recorded Confirmed Type Atorvastatin [Lipitor] 40 mg PO HS 02/25/22 07/03/22 History Metoprolol Tartrate [Lopressor] 50 mg PO BID 02/25/22 07/03/22 History Oxybutynin Chloride [Ditropan XL] 10 mg PO HS 06/30/22 07/03/22 History Aspirin [Adult Low Dose Aspirin EC] 81 mg PO BID #60 tab 07/04/22 Rx Docusate [Colace] 100 mg PO BID #60 capsule 07/04/22 Rx HYDROcodone/APAP 7.5-325MG [[place] 1 - 2 each PO Q6HR PRN #42 tab 07/04/22 Rx 7.5-325] Allergies Allergy/AdvReac Type Severity Reaction Status Date / Time No Known Allergies Allergy Verified 07/03/22 06:30 Physical Exam Vitals: Vital Signs Temp Pulse Pulse Resp BP BP Pulse Ox 07/04/22 07:46 88 89 19 07/04/22 07:41 97.7 F 102 H 17 138/64 93 L 07/04/22 02:05 98.4 F 88 19 160/76 94 L 07/03/22 21:17 99 89 18 07/03/22 20:00 98.1 F 99 18 129/69 93 L 07/03/22 18:05 90 17 07/03/22 14:00 97.6 F 90 18 133/75 93 L Intake and Output 07/03/22 07/04/22 07/04/22 22:59 06:59 14:59 Intake Total 1080 Balance 1080 Intake: Oral 1080 Other: Voiding Method Toilet Toilet # Voids 2 1 PHYSICAL EXAM: VITAL SIGNS: [As above] GENERAL: Sitting up in bed, no acute distress HEENT: Conjunctivae normal. eyes normal. MMM. NECK: No JVD. No thyroid enlargement. No LNs CARDIOVASCULAR: S1, S2 regular.No murmur RESPIRATION: Breath sounds diminished in the bases. No rhonchi or crackles. No bronchial breathing. ABDOMEN: Soft, nontender . No guarding. no masses palpable. No ascites, No hepatosplenomegaly.Bowel sounds heard. LEGS: Left lower extremity, dressing clean dry and intact, soft, minimal edema. No calf tenderness. No cyanosis, no clubbing. Positive DP pulse PSYCHIATRY: Alert and oriented X3, mood and affect normal. NERVOUS SYSTEM: Cranial N 2-12 grossly normal.No focal deficits. Strength and sensation grossly intact. Skin: Warm and dry, no rash Results CBC & Chem 7: 07/04/22 06:25 Labs: Abnormal Lab Results - Last 24 Hours (Table) 07/04/22 Range/Units 06:25 MCHC 31.8 L (32.0-37.0) g/dL Monocytes # (Manual) 1.50 H (0.20-1.00) X 10*3/uL Eosinophils # (Manual) 0 L (0.04-0.35) X 10*3/uL Assessment and Plan Assessment: Left knee osteoarthritis, failed conservative treatment, status post left total knee arthroplasty Hypertension Hyperlipidemia Obstructive sleep apnea Morbid obesity, BMI 45.3 Plan: Continue on current medication regime ,monitoring and symptomatic treatment. Pain management and DVT prophylaxis as per primary. Home meds reviewed and will resume accordingly. Rest pulmonary toileting with incentive spirometer reinforced. Follow up with Dr. Polanco in 1 week. Thank you for the c onsult. The impression and plan of care has been dictated as directed. : I performed a history and examination of this patient, discussed the same with the dictator. I agree with the dictator's note ,documented as a scribe. Any additional findings or plans will be noted.
[2022-07-04] MEDS ORDERED: OXYBUTYNIN 10 MG TAB.ER.24 PO SCH (21:00)
[2022-07-04] MEDS ORDERED: METOPROLOL TARTRATE 50 MG TAB PO SCH (21:00)
== END 2022-07-04 12:23 | disposition home health service (06) ==
LOC: OR 05:33 → 4SSUR 09:44 → OR 07-04 12:23
PROVIDERS: ATTEND Orthopaedic Surgery Sports Medicine
DX: M17.12 Unilateral primary osteoarthritis, left knee (principal); G89.18 Other acute postprocedural pain; M25.762 Osteophyte, left knee; M21.162 Varus deformity, not elsewhere classified, left knee; I12.9 Hypertensive chronic kidney disease with stage 1 through stage 4 chronic kidney disease, or unspecified chronic kidney disease; N18.9 Chronic kidney disease, unspecified; R45.0 Nervousness; F32.9 Major depressive disorder, single episode, unspecified; Z98.890 Other specified postprocedural states; Z86.59 Personal history of other mental and behavioral disorders; Z79.02 Long term (current) use of antithrombotics/antiplatelets
CPT/HCPCS: 27447; 97116; 97110; 97161; 64999; 64448; 76942; 85025; 88300; 73560; C1776; C1713; J2250; J3370; J1100; J0690 ×3; J2405; J3010; J2795

== ENCOUNTER 2022-07-06 17:06 | Emergency (ER) | payer MEDICARE ==
[2022-07-06 17:12] VITALS: BP 157/93; PULSE 90; RESP 18; TEMP 98.6
--- NOTE | 2022-07-06 17:27 | ED ---
General Adult HPI - General Chief complaint: Recheck/Abnormal Lab/Rx Stated complaint: Post-op complications Time Seen by Provider: 07/06/22 17:15 Source: patient Mode of arrival: ambulatory Limitations: no limitations - History of Present Illness Initial comments: Dictation was produced using [employer] dictation software. please excuse any grammatical, word or spelling errors. Chief Complaint: 67-year-old male presents emergency Department postoperative bleeding History of Present Illness: Patient is a 67-year-old male presents emergency department bleeding from the inferior portion of his surgical site. Patient had total knee replacement of the left knee. Patient states that since surgery there is been oozing of blood coming from them. Portion of the medical incision. Patient denies other complaints at this time. The ROS documented in this emergency department record has been reviewed and confirmed by me. Those systems with pertinent positive or negative responses have been documented in the HPI. All other systems are other negative and/or noncontributory. PHYSICAL EXAM: General Impression: Alert and oriented x3, not in acute distress HEENT: Normocephalic atraumatic, extra-ocular movements intact, pupils equal and reactive to light bilaterally, mucous membranes moist. Cardiovascular: Heart regular rate and rhythm Chest: Able to complete full sentences, no retractions, no tachypnea Musculoskeletal: Pulses present and equal in all extremities, no peripheral edema Motor: no focal deficits noted Left lower extremity: Surgical site clean dry and intact for the inferior portion has oozing of blood Neurological: CN II-XII grossly intact, no focal motor or sensory deficits noted Skin: Intact with no visualized rashes Psych: Normal affect and mood ED course: 67-year-old male presents emergency department for surgical site bleeding patient is postop day 3 for total knee arthroplasty of the left knee. Vital signs upon arrival are within acceptable limits. Spoke with Dr. Dinero who did not have any recommendations he reports that this is just from hematoma from under the surgical site. States that it's okay that it's bleeding. Request the patient be put on a seven-day course of Keflex. Patient has an appointment with Dr. Dinero tomorrow. - Related Data Home Medications Medication Instructions Recorded Confirmed Atorvastatin [Lipitor] 40 mg PO HS 02/25/22 07/03/22 Metoprolol Tartrate [Lopressor] 50 mg PO BID 02/25/22 07/03/22 Oxybutynin Chloride [Ditropan XL] 10 mg PO HS 06/30/22 07/03/22 Previous Rx's Medication Instructions Recorded Aspirin [Adult Low Dose Aspirin EC] 81 mg PO BID #60 tab 07/04/22 Docusate [Colace] 100 mg PO BID #60 capsule 07/04/22 HYDROcodone/APAP 7.5-325MG [[place] 1 - 2 each PO Q6HR PRN #42 tab 07/04/22 7.5-325] Cephalexin [Keflex] 500 mg PO Q12HR 7 Days #14 cap 07/06/22 Allergies Allergy/AdvReac Type Severity Reaction Status Date / Time No Known Allergies Allergy Verified 07/06/22 17:12 Review of Systems ROS Statement: Those systems with pertinent positive or pertinent negative responses have been documented in the HPI. ROS Other: All systems not noted in ROS Statement are negative. Past Medical History Past Medical History: Hyperlipidemia, Hypertension History of Any Multi-Drug Resistant Organisms: None Reported Past Surgical History: Orthopedic Surgery Additional Past Surgical History / Comment(s): going for knee surgery 03/2022 Past Psychological History: No Psychological Hx Reported Smoking Status: Never smoker Past Alcohol Use History: Rare Past Drug Use History: None Reported General Exam Limitations: no limitations Course Vital Signs 07/06/22 17:07 Temperature 98.6 F Pulse Rate 90 Respiratory 18 Rate Blood Pressure 157/93 O2 Sat by Pulse 95 Oximetry Disposition Clinical Impression: Problem involving surgical incision Disposition: HOME SELF-CARE Condition: Good Prescriptions: Cephalexin [Keflex] 500 mg PO Q12HR 7 Days #14 cap Is patient prescribed a controlled substance at d/c from ED?: No Referrals: Brigido Dinero MD [STAFF PHYSICIAN] - 1-2 days Time of Disposition: 17:33
== END 2022-07-06 17:40 | disposition home or self-care (01) ==
LOC: EC 17:06
DX: Z48.89 Encounter for other specified surgical aftercare (principal); I10 Essential (primary) hypertension; E78.5 Hyperlipidemia, unspecified; Z79.899 Other long term (current) drug therapy
CPT/HCPCS: 99283